=== PATIENT | female | born 1965 | race Caucasian/White ===

== ENCOUNTER → 2021-07-18 | Day surgery (SDC) | payer OTHER ==
[~2021-07-18] VITALS: Ht 154.9 cm; Wt 108.0 kg
[~2021-07-18] MED LIST: ADVIL200 M1 PO; OXYCODONE-ACET1 EAC1 PO; PERCOCET 5-3251 EACH PO; XARELTO10 MG PO
== END | disposition home or self-care (01) ==
LOC: FAS 07:57
DX: Z12.11 Encounter for screening for malignant neoplasm of colon (principal); K57.30 Diverticulosis of large intestine without perforation or abscess without bleeding; I10 Essential (primary) hypertension; F41.9 Anxiety disorder, unspecified; F32.A Depression, unspecified; M17.10 Unilateral primary osteoarthritis, unspecified knee; Z96.651 Presence of right artificial knee joint
CPT/HCPCS: 84703; J2250; J2704; J7120